=== PATIENT | female | born 1970 | race Caucasian/White ===

== ENCOUNTER → 2016-10-20 | Outpatient (CLI) | payer BC ==
[~2016-10-20] MED LIST: BIOT25006 PO; CALC1TAB94 PO; CYAN10007 PO; FLUO40CA PO; HUMIRA; LEVORA PO; MULT-305 PO; NAPR-243 PO
--- NOTE | 2016-10-21 18:54 | Diagnostic Imaging Report ---
Bilateral screening mammogram. The current study was also evaluated with a Computer Aided Detection (CAD) system. INDICATION: Screening. No current complaints stated on the questionnaire. COMPARISON: 07/29/2015. FINDINGS: The breasts are composed of scattered fibroglandular densities. There is no mass, architectural distortion, or suspicious cluster of calcifications. Allowing for technique and positional differences, no suspicious change is seen. IMPRESSION: No significant change. ACR BI-RADS Category 2: Benign findings. Result letter will be mailed to the patient. Note: At least 10% of breast cancer is not imaged by mammography. Dictated by: Dictated on workstation # [id number]
== END ==
LOC: RAD 08:36
PROVIDERS: ATTEND Family Medicine
DX: Z12.31 Encounter for screening mammogram for malignant neoplasm of breast (principal)
CPT/HCPCS: 77067

== ENCOUNTER → 2018-03-20 | Outpatient (CLI) | payer BC ==
--- NOTE | 2018-03-20 10:32 | Diagnostic Imaging Report ---
Indication: Routine screening. Comparison is made with prior exam from 10/20/2016 and 07/29/2015. 2-D and 3-D bilateral screening mammography was performed CAD. Scattered fibroglandular densities are identified bilaterally. Intraparenchymal lymph nodes in the upper-outer aspects of both breasts appears stable. No new mass or malignant appearing microcalcifications are seen. The axilla are unremarkable. IMPRESSION: BI-RADS category 2 No mammographic features suspicious for malignancy are identified. ACR BI-RADS Category 2: Benign findings. Result letter will be mailed to the patient. Note: At least 10% of breast cancer is not imaged by mammography. Dictated by: Dictated on workstation # [id number]
== END ==
LOC: RAD 08:02
PROVIDERS: ATTEND Family Medicine
DX: Z12.31 Encounter for screening mammogram for malignant neoplasm of breast (principal)
CPT/HCPCS: 77067

== ENCOUNTER → 2019-08-27 | Outpatient (CLI) | payer BC ==
--- NOTE | 2019-08-27 10:20 | Diagnostic Imaging Report ---
INDICATION: Routine screening. COMPARISON: Comparison is made with prior mammograms from 03/20/2018 and 10/20/2016. TECHNIQUE: 2-D and 3-D bilateral screening mammography was performed. The current study was also evaluated with a Computer Aided Detection (CAD) system. 3-D tomosynthesis was also performed and reviewed. FINDINGS: Scattered fibroglandular densities are identified bilaterally. The parenchymal pattern is stable. Previously noted intraparenchymal lymph nodes in the upper-outer aspects of both breasts appear stable. No new mass or malignant-appearing microcalcifications are seen. Axillae are unremarkable. IMPRESSION: No mammographic features suspicious for malignancy are identified. ACR BI-RADS Category 2: Benign findings. Result letter will be mailed to the patient. Note: At least 10% of breast cancer is not imaged by mammography. Dictated by: Dictated on workstation # [id number]
== END ==
LOC: RAD 07:44
PROVIDERS: ATTEND Family Medicine
DX: Z12.31 Encounter for screening mammogram for malignant neoplasm of breast (principal)
CPT/HCPCS: 77067

== ENCOUNTER → 2020-09-30 | Outpatient (CLI) | payer BC ==
--- NOTE | 2020-09-30 10:50 | Diagnostic Imaging Report ---
EXAMINATION: Digital mammogram bilateral screening with CAD. INDICATION: Screening. COMPARISON: This study was compared to the prior exams of 08/27/2019, 03/20/2018, and 10/20/2016. PERSONAL HISTORY: At this time, there are no current complaints. FINDINGS: There is a mild amount of fibroglandular tissue present in both breasts, similar to the prior exam. No primary or secondary sign of malignancy is noted. IMPRESSION: There is no radiographic evidence for malignancy. ACR BI-RADS Category 1: Negative. Result letter will be mailed to the patient. Note: At least 10% of breast cancer is not imaged by mammography. Dictated by: Dictated on workstation # [id number]
== END ==
LOC: RAD 08:00
PROVIDERS: ATTEND Family Medicine
DX: Z12.31 Encounter for screening mammogram for malignant neoplasm of breast (principal)
CPT/HCPCS: 77063; 77067